=== PATIENT | female | born 1985 | race African-American/Black ===

== ENCOUNTER 2017-03-04 15:59 | Emergency (ER) | payer SELFPAY ==
[~2017-03-04] VITALS: Ht 154.9 cm; Wt 104.3 kg
[~2017-03-04 15:59] MED LIST: METH-37 PO; TRAM-48 PO
--- NOTE | 2017-03-04 16:26 | PHYS DOC ---
Past Medical History Past Medical History: Asthma Additional Past Medical Histor: right wrist carrpel tunnel, neuropathy,CHRONIC L HIP & LEG PAIN Past Surgical History: No Surgical History Alcohol Use: None Drug Use: None Adult General Chief Complaint Chief Complaint: SHOULDER INJURY [facility] HPI Patient is a 31 year old -[place] female who presents with multiple complaints. She states that Saturday she started having spasms in her neck and left shoulder and left sided sciatica pain is flared up. She states she's had a history of sciatica but has not cause any issues for while. She states today her pain in her left arm got worse and it feels like it's numb but she can still feel it and move it. She states in the left trapezius muscle and feels like is a spasm. She denies any fevers chills shortness of breath, chest pain nausea vomiting. Review of Systems Review of Systems Constitutional: Denies fever or chills [] Eyes: Denies change in visual acuity, redness, or eye pain [] HENT: Denies nasal congestion or sore throat [] Respiratory: Denies cough or shortness of breath [] Cardiovascular: No additional information not addressed in HPI [] GI: Denies abdominal pain, nausea, vomiting, bloody stools or diarrhea [] : Denies dysuria or hematuria [] Musculoskeletal: Denies back pain or joint pain [] Integument: Denies rash or skin lesions [] Neurologic: Denies headache, focal weakness or sensory changes [] Endocrine: Denies polyuria or polydipsia [] Allergies Allergies Allergies Coded Allergies Type Severity Reaction Last Updated Verified Latex, Natural Rubber Allergy Mild irritates my skin 06/03/14 Yes Physical Exam Physical Exam Constitutional: Well developed, well nourished, no acute distress, non-toxic appearance. [] HENT: Normocephalic, atraumatic, bilateral external ears normal, oropharynx moist, no oral exudates, nose normal. [] Eyes: PERRLA, EOMI, conjunctiva normal, no discharge. [] Neck: Normal range of motion, no tenderness, supple, no stridor. [] Cardiovascular:Heart rate regular rhythm, no murmur [] Lungs & Thorax: Bilateral breath sounds clear to auscultation [] Abdomen: Bowel sounds normal, soft, no tenderness, no masses, no pulsatile masses. [] Skin: Warm, dry, no erythema, no rash. [] Back: Tender to palpation of the left trapezius with obvious spasms, no CVA tenderness. [] Extremities: No tenderness, no cyanosis, no clubbing, ROM intact, no edema. Able to flex extend the fingers, wrist, elbow, shoulders of her left arm with median, radial and ulnar nerve dyscrasias intact motor and sensation. Strength 5 out of 5 Neurologic: Alert and oriented X 3, normal motor function, normal sensory function, no focal deficits noted. [] Psychologic: Affect normal, judgement normal, mood normal. [] Current Patient Data Vital Signs Vital Signs Date Time Temp Pulse Resp B/P (MAP) Pulse Ox O2 Delivery O2 Flow Rate FiO2 03/04/17 16:46 98.5 95 16 152/103 (119) 99 Room Air 98.5 Lab Values Laboratory Tests Test 03/04/17 17:20 Urine Test Negative (NEG) EKG EKG [] Radiology/Procedures Radiology/Procedures [facility] [address] [place] [address] IMAGING REPORT Signed PATIENT: JOO GEORGE ACCOUNT: [id number] : 1985 LOCATION: ER AGE: 31 SEX: F EXAM STATUS: REG ER ORD. PHYSICIAN: CEDRIC ST MD REASON: neck pain with left arm numness PROCEDURE: CT HEAD AND CERVICAL SPINE WO HEAD CT WITHOUT CONTRAST History: Neck pain with left arm numbness. Comparison: None. Technique: Axial images are obtained of the head from the skull base through the vertex without IV contrast. Exposure: One or more of the following individualized dose reduction techniques were utilized for this examination: 1. Automated exposure control 2. Adjustment of the mA and/or kV according to patient size 3. Use of iterative reconstruction technique Findings: The ventricles are appropriate in size, shape, and location for the patient's age. No obvious intracranial mass, mass-effect, midline shift, hemorrhage or obvious acute infarction is identified. Basilar cisterns are patent. Bone windows demonstrate no acute calvarial abnormality. The visualized paranasal sinuses appear clear. Impression: 1. No acute intracranial process. CT cervical spine Technique: Noncontrast CT of the cervical spine was performed using helical technique. Axial, sagittal, coronal reconstructions were obtained. Exposure: One or more of the following individualized dose reduction techniques were utilized for this examination: 1. Automated exposure control 2. Adjustment of the mA and/or kV according to patient size 3. Use of iterative reconstruction technique Findings: There is no evidence of acute fracture or acute malalignment involving the cervical spine. No prevertebral soft tissue swelling is identified. No significant degeneration is seen. Impression: No evidence of acute traumatic injury involving the cervical spine. Electronically signed by: Abraham Nguyen MD (03/04/2017 6:19 PM) DICTATED and SIGNED BY: ABRAHAM NGUYEN MD DATE: 03/04/171813 CC: CEDRIC ST MD; ANJEL SHORT MD ~ Impressions: Muscle spasm some neck Course & Med Decision Making Course & Med Decision Making Pertinent Labs and Imaging studies reviewed. (See chart for details) CT head and neck does not show any acute abdomen allergies. Return physical exam is normal. I do not suspect any serious pathology going on since this is just left upper extremity this being affected with this decreased sensation. We will discharge with Flexeril to see if this will help muscle spasms and decreased her symptoms. Return precautions given for worsening symptoms, fevers , numbness, weakness or other concerns. Dragon Disclaimer Dragon Disclaimer This electronic medical record was generated, in whole or in part, using a voice recognition dictation system. Departure Departure Impression: Primary Impression: Muscle spasm Disposition: 01 HOME, SELF-CARE Condition: STABLE Referrals: ANJEL SHORT MD (PCP) Patient Instructions: Muscle Cramps Additional Instructions: The CAT scan of her head and neck did not show any acute abnormalities. This is likely secondary to muscle spasm. Your being discharged with Flexeril which is a muscle relaxant. Please take them as instructed. They can make you sleepy so please don't drive while taking. If your pain gets worse, you have numbness, you have weakness of your arm or other concerns please return back to emergency department for follow-up. You will need to see her primary care physician within the next 3-5 days. Scripts Cyclobenzaprine Hcl (CYCLOBENZAPRINE HCL) 10 Mg Tablet 1 TAB PO TID Y for MUSCLE SPASMS, #30 TAB Prov: CEDRIC ST MD 03/04/[address] MD Mar 04, 2017 16:26
[2017-03-04 17:55] LABS: NEG OBC UR NEG; POS OBC UR POS
--- NOTE | 2017-03-04 18:22 | RAD ---
HEAD CT WITHOUT CONTRAST History: Neck pain with left arm numbness. Comparison: None. Technique: Axial images are obtained of the head from the skull base through the vertex without IV contrast. Exposure: One or more of the following individualized dose reduction techniques were utilized for this examination: 1. Automated exposure control 2. Adjustment of the mA and/or kV according to patient size 3. Use of iterative reconstruction technique Findings: The ventricles are appropriate in size, shape, and location for the patient's age. No obvious intracranial mass, mass-effect, midline shift, hemorrhage or obvious acute infarction is identified. Basilar cisterns are patent. Bone windows demonstrate no acute calvarial abnormality. The visualized paranasal sinuses appear clear. Impression: 1. No acute intracranial process. CT cervical spine Technique: Noncontrast CT of the cervical spine was performed using helical technique. Axial, sagittal, coronal reconstructions were obtained. Exposure: One or more of the following individualized dose reduction techniques were utilized for this examination: 1. Automated exposure control 2. Adjustment of the mA and/or kV according to patient size 3. Use of iterative reconstruction technique Findings: There is no evidence of acute fracture or acute malalignment involving the cervical spine. No prevertebral soft tissue swelling is identified. No significant degeneration is seen. Impression: No evidence of acute traumatic injury involving the cervical spine. Electronically signed by: Abraham Ramirez MD (03/04/2017 6:19 PM)
[2017-03-04] MEDS ORDERED: CYCL10TA2 PO (19:08)
[2017-03-04 19:28] VITALS: BP 134/90
== END 2017-03-04 19:30 | disposition home or self-care (01) ==
LOC: ER 15:59
DX: M62.838 Other muscle spasm (principal); M25.512 Pain in left shoulder; M54.32 Sciatica, left side; J45.909 Unspecified asthma, uncomplicated; G56.00 Carpal tunnel syndrome, unspecified upper limb; G89.29 Other chronic pain; Z91.040 Latex allergy status
CPT/HCPCS: 70450; 72125; 81025; 99285-25

== ENCOUNTER 2017-05-16 20:40 | Emergency (ER) | payer SELFPAY ==
[~2017-05-16] VITALS: Ht 154.9 cm; Wt 113.4 kg
[~2017-05-16 20:40] MED LIST changes: +CYCL10TA2 PO
[2017-05-16 21:00] VITALS: BP 127/76
[2017-05-16] MEDS ORDERED: OXYC-323 PO (21:02)
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
== END 2017-05-16 21:20 | disposition home or self-care (01) ==
LOC: ER 20:40
DX: T21.22XA Burn of second degree of abdominal wall, initial encounter (principal); J45.909 Unspecified asthma, uncomplicated; G56.01 Carpal tunnel syndrome, right upper limb; G89.29 Other chronic pain; Z91.040 Latex allergy status; Z88.8 Allergy status to other drugs, medicaments and biological substances; Y27.2XXA Contact with hot fluids, undetermined intent, initial encounter; Y93.89 Activity, other specified; Y99.8 Other external cause status; Y92.090 Kitchen in other non-institutional residence as the place of occurrence of the external cause
CPT/HCPCS: 99283

== ENCOUNTER 2017-07-16 08:42 | Emergency (ER) | payer SELFPAY ==
[~2017-07-16] VITALS: Ht 154.9 cm; Wt 117.9 kg
[~2017-07-16 08:42] MED LIST changes: +OXYC-323 PO
[2017-07-16 08:55] VITALS: BP 146/74
--- NOTE | 2017-07-16 09:30 | PHYS DOC ---
Past Medical History Past Medical History: Asthma Additional Past Medical Histor: right wrist carrpel tunnel, neuropathy,CHRONIC L HIP & LEG PAIN Past Surgical History: No Surgical History Alcohol Use: None Drug Use: None Adult General Chief Complaint Chief Complaint: HAND PROBLEM [facility] HPI Patient is a 32 year old female presents to the emergency department with a history of right hand pain. Patient states she was trying to pull a box off the shelf using her right third finger when she developed pain. She states this happened about 2 weeks ago. She states she had taken ibuprofen 800 mg at night because ibuprofen causes her to be sleepy. Patient states she continues to have pain. She is right hand dominant. Review of Systems Review of Systems Constitutional: Denies fever or chills [] Eyes: Denies change in visual acuity, redness, or eye pain [] HENT: Denies nasal congestion or sore throat [] Respiratory: Denies cough or shortness of breath [] Cardiovascular: No additional information not addressed in HPI [] GI: Denies abdominal pain, nausea, vomiting, bloody stools or diarrhea [] : Denies dysuria or hematuria [] Musculoskeletal: Denies back pain. Right hand pain Integument: Denies rash or skin lesions [] Neurologic: Denies headache, focal weakness or sensory changes [] Endocrine: Denies polyuria or polydipsia [] Allergies Allergies Allergies Coded Allergies Type Severity Reaction Last Updated Verified Latex, Natural Rubber Allergy Mild irritates my skin 06/03/14 Yes Physical Exam Physical Exam Constitutional: Well developed, well nourished, no acute distress, non-toxic appearance. [] HENT: Normocephalic, atraumatic, bilateral external ears normal, oropharynx moist, no oral exudates, nose normal. [] Eyes: PERRLA, EOMI, conjunctiva normal, no discharge. [] Neck: Normal range of motion, no tenderness, supple, no stridor. [] Cardiovascular:Heart rate regular rhythm, no murmur [] Lungs & Thorax: Bilateral breath sounds clear to auscultation [] Skin: Warm, dry, no erythema, no rash. [] Extremities: right 3rd metacarpal tenderness, no cyanosis, no clubbing, ROM intact, no edema. Patient with good sensation noted, full ROM of the hand and fingers noted. No discoloration noted, no swelling noted. Good strength noted. Neurologic: Alert and oriented X 3, normal motor function, normal sensory function, no focal deficits noted. [] Psychologic: Affect normal, judgement normal, mood normal. [] Current Patient Data Vital Signs Vital Signs Date Time Temp Pulse Resp B/P (MAP) Pulse Ox O2 Delivery O2 Flow Rate FiO2 07/16/17 08:55 98.4 78 22 99 Room Air 98.4 EKG EKG [] Radiology/Procedures Radiology/Procedures [][facility] [address] [place] [address] IMAGING REPORT Signed PATIENT: JOO GEORGE ACCOUNT: [id number] : 1985 LOCATION: ER AGE: 32 SEX: F EXAM STATUS: REG ER ORD. PHYSICIAN: ROXANNE KHOURY APRN REASON: right hand pain PROCEDURE: HAND RIGHT 3V Right hand, 3 views, 07/16/2017: History: Hand pain, injury No fracture or dislocation is identified. The soft tissues are unremarkable. IMPRESSION: No acute right hand abnormality is detected. DICTATED and SIGNED BY: LIZ CARR MD DATE: 07/16/17 0953 CC: ANJEL SHORT MD; ROXANNE KHOURY APRN; NON,STAFF ~ Course & Med Decision Making Course & Med Decision Making Pertinent Labs and Imaging studies reviewed. (See chart for details) X-rays negative for bony abnormalities. Patient will be encouraged to take Ibuprofen 600-800 mg every 8 hours. Ice packs on 20 minutes and off 20 minutes several times a day. Recommended ramirez wrap for comfort. Patient will be discharged home in stable condition. Signs and symptoms to return to the emergency department has been provided. Patient was provided orthopedic to followup with in 1 week. All questions and concerns have been answered at the patients beside. [] Dragon Disclaimer Dragon Disclaimer This electronic medical record was generated, in whole or in part, using a voice recognition dictation system. Departure Departure Impression: Primary Impression: Sprain of right hand Disposition: HOME, SELF-CARE Condition: STABLE Referrals: ANJEL SHORT MD (PCP) JOO BELL MD Patient Instructions: Hand Injuries, [id number] Additional Instructions: Activity as tolerated Ibuprofen 600-800 mg every 8 hours with food, stop taking if you develop upset stomach Ice packs on 20 minutes and of 20 minutes several times a day Wear the ramirez wrap for the next 5-7 days Followup with orthopedic in 5-7 days Return to emergency department as needed for signs and symptoms that become worse. Problem Qualifiers Primary Impression: Sprain of right hand Encounter type: initial encounter Qualified Codes: S63.91XA - Sprain of unspecified part of right wrist and hand, initial encounter ROXANNE KHOURY APRN Jul 16, 2017 09:30
--- NOTE | 2017-07-16 09:58 | RAD ---
Right hand, 3 views, 07/16/2017: History: Hand pain, injury No fracture or dislocation is identified. The soft tissues are unremarkable. IMPRESSION: No acute right hand abnormality is detected.
== END 2017-07-16 10:16 | disposition home or self-care (01) ==
LOC: ER 08:42
DX: S63.91XA Sprain of unspecified part of right wrist and hand, initial encounter (principal); J45.909 Unspecified asthma, uncomplicated; G89.29 Other chronic pain; Z91.040 Latex allergy status; X50.9XXA Other and unspecified overexertion or strenuous movements or postures, initial encounter; Y93.89 Activity, other specified; Y99.8 Other external cause status; Y92.89 Other specified places as the place of occurrence of the external cause
CPT/HCPCS: 73130; 99284

== ENCOUNTER 2017-08-25 18:14 | Emergency (ER) | payer SELFPAY ==
[~2017-08-25] VITALS: Ht 154.9 cm; Wt 104.3 kg
[2017-08-25 18:45] LABS: BASO % 0 % (0-3); EOS % 2 % (0-3); HEMATOCRIT 39.2 % (36.0-47.0); HEMOGLOBIN 12.6 g/dL (12.0-15.5); LYMPH # 2.5 x10^3/uL (1.0-4.8); LYMPH % 45 % (24-48); MEAN CORPUSCULAR HEMOGLOBIN 27 pg (25-35); MEAN CORPUSCULAR HGB CONC 32 g/dL (31-37); MEAN CORPUSCULAR VOLUME 83 fL (79-100); MONO % 8 % (0-9); NEUT % 45 % (31-73); PLATELET COUNT 238 x10^3/uL (140-400); RED BLOOD COUNT 4.72 x10^6/uL (3.50-5.40); RED CELL DISTRIBUTION WIDTH 14.7 % (11.5-14.5); WHITE BLOOD COUNT 5.6 x10^3/uL (4.0-11.0)
[2017-08-25 19:03] LABS: CALCIUM 8.9 mg/dL (8.5-10.1); CREATININE 0.9 mg/dL (0.6-1.0); GFR 88.4; POTASSIUM 3.6 mmol/L (3.5-5.1)
[2017-08-25 19:08] LABS: ALBUMIN 3.7 g/dL (3.4-5.0); TOTAL BILIRUBIN 0.2 mg/dL (0.2-1.0); TOTAL PROTEIN 7.3 g/dL (6.4-8.2)
[2017-08-25 19:11] LABS: BILIRUBIN,URINE NEGATIVE (NEG); GLUCOSE,URINE NEGATIVE (NEG); NITRITE,URINE NEGATIVE (NEG); PH,URINE 6.5; PROTEIN,URINE NEGATIVE (NEG-TRACE); UROBILINOGEN,URINE 0.2 mg/dL (0.2 mg/dL)
[2017-08-25 19:25] LABS: BACTERIA,URINE FEW /HPF (0-FEW); RBC,URINE OCC /HPF (0-2); SQUAMOUS EPITHELIAL CELL,UR FEW /LPF
[2017-08-25] MEDS ORDERED: DICY10CA53 PO (20:28)
--- NOTE | 2017-08-25 20:29 | PHYS DOC ---
Past Medical History Past Medical History: Asthma, Other Additional Past Medical Histor: right wrist carrpel tunnel, neuropathy,CHRONIC L HIP & LEG PAIN Past Surgical History: No Surgical History Alcohol Use: None Drug Use: None Adult General Chief Complaint Chief Complaint: ABDOMINAL PAIN HPI HPI Patient is a 32 year old female who presents ambulatory to the ED complaining of abdominal pain. She's had this abdominal pain for over a week. At first it was around her bellybutton, then it went down the sides of her abdomen and was across her abdomen. It hurts worse when she eats or drinks. She's had nausea. One morning she vomited a little phlegm that she has not had much vomiting. She had diarrhea once on , otherwise it has been soft stools. Patient tried naproxen without relief. She took ranitidine for a couple of days which also did not help. Patient has not had recurrent problem with abdominal pain. She states she last ate 15 or 20 minutes prior to arrival. She ate some kind of cheese tater tots from [employer]. It made her nauseated and she wasn't able to eat much. Patient does not take any chronic medications. She has no chronic medical problems. She's had no surgeries. 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 PCP is at [facility], she does have a routine appointment coming up on 09/09. Review of Systems Review of Systems Constitutional: Denies fever or chills [] Respiratory: Denies cough or shortness of breath [] Cardiovascular: Denies chest pain GI: As in history of present illness : Denies dysuria or hematuria [] Allergies Allergies Allergies Coded Allergies Type Severity Reaction Last Updated Verified Latex, Natural Rubber Allergy Mild irritates my skin 06/03/14 Yes Physical Exam Physical Exam Constitutional: Obese female, ambulatory without distress, in no acute distress whatsoever, warm and dry. HENT: Normocephalic, atraumatic, bilateral external ears normal, nose normal. [ ] Eyes: conjunctiva normal, no discharge. [] Neck: Normal range of motion, no stridor. [] Cardiovascular:Heart rate regular rhythm, no murmur [] Lungs & Thorax: Bilateral breath sounds clear to auscultation [] Abdomen: Bowel sounds normal, soft, no tenderness, no masses, no pulsatile masses. Abdomen exam entirely benign with no tenderness whatsoever to palpation. Skin: Warm, dry, no erythema, no rash. [] Extremities: No tenderness, no cyanosis, no clubbing, ROM intact, no edema. [] Neurologic: Alert and oriented X 3, normal motor function, no focal deficits noted. [] Current Patient Data Vital Signs Vital Signs Date Time Temp Pulse Resp B/P (MAP) Pulse Ox O2 Delivery O2 Flow Rate FiO2 08/25/17 20:30 80 135/82 (99) 97 Room Air 08/25/17 18:15 98.4 16 98.4 Lab Values Laboratory Tests Test 08/25/17 18:37 08/25/17 19:02 08/25/17 19:04 White Blood Count 5.6 x10^3/uL (4.0-11.0) Red Blood Count 4.72 x10^6/uL (3.50-5.40) Hemoglobin 12.6 g/dL (12.0-15.5) Hematocrit 39.2 % (36.0-47.0) Mean Corpuscular Volume 83 fL (79-100) Mean Corpuscular Hemoglobin 27 pg (25-35) Mean Corpuscular Hemoglobin Concent 32 g/dL (31-37) Red Cell Distribution Width 14.7 % (11.5-14.5) H Platelet Count 238 x10^3/uL (140-400) Neutrophils (%) (Auto) 45 % (31-73) Lymphocytes (%) (Auto) 45 % (24-48) Monocytes (%) (Auto) 8 % (0-9) Eosinophils (%) (Auto) 2 % (0-3) Basophils (%) (Auto) 0 % (0-3) Neutrophils # (Auto) 2.5 x10^3uL (1.8-7.7) Lymphocytes # (Auto) 2.5 x10^3/uL (1.0-4.8) Monocytes # (Auto) 0.5 x10^3/uL (0.0-1.1) Eosinophils # (Auto) 0.1 x10^3/uL (0.0-0.7) Basophils # (Auto) 0.0 x10^3/uL (0.0-0.2) Sodium Level 140 mmol/L (136-145) Potassium Level 3.6 mmol/L (3.5-5.1) Chloride Level 104 mmol/L (98-107) Carbon Dioxide Level 27 mmol/L (21-32) Anion Gap 9 (6-14) Blood Urea Nitrogen 9 mg/dL (7-20) Creatinine 0.9 mg/dL (0.6-1.0) Estimated GFR (Cockcroft-Gault) 88.4 BUN/Creatinine Ratio 10 (6-20) Glucose Level 87 mg/dL (70-99) Calcium Level 8.9 mg/dL (8.5-10.1) Total Bilirubin 0.2 mg/dL (0.2-1.0) Aspartate Amino Transferase (AST) 16 U/L (15-37) Alanine Aminotransferase (ALT) 24 U/L (14-59) Alkaline Phosphatase 77 U/L (46-116) Total Protein 7.3 g/dL (6.4-8.2) Albumin 3.7 g/dL (3.4-5.0) Albumin/Globulin Ratio 1.0 (1.0-1.7) Lipase 84 U/L (73-393) Urine Collection Type Unknown Urine Color Yellow Urine Clarity Clear Urine pH 6.5 Urine Specific Tyler 1.010 Urine Protein Negative mg/dL (NEG-TRACE) Urine Glucose (UA) Negative mg/dL (NEG) Urine Ketones (Stick) Negative mg/dL (NEG) Urine Blood Small (NEG) Urine Nitrite Negative (NEG) Urine Bilirubin Negative (NEG) Urine Urobilinogen Dipstick 0.2 mg/dL (0.2 mg/dL) Urine Leukocyte Esterase Small (NEG) Urine RBC Occ /HPF (0-2) Urine WBC 1-4 /HPF (0-4) Urine Squamous Epithelial Cells Few /LPF Urine Bacteria Few /HPF (0-FEW) Urine Mucus Slight /LPF POC Urine HCG, Qualitative Hcg negative (Negative) Laboratory Tests 08/25/17 18:37 Laboratory Tests 08/25/17 18:37 EKG EKG [] Radiology/Procedures Radiology/Procedures Abdomen flat and upright x-rays read by me. There is a moderate amount of stool in the colon. Nonspecific bowel gas pattern. No free air. No air-fluid levels. Nonobstructive bowel gas pattern.[] Course & Med Decision Making Course & Med Decision Making Pertinent Labs and Imaging studies reviewed. (See chart for details) 32-year-old female presents with abdominal pain for over a week, the pain has moved around to all areas of her abdomen. She's had nausea but no vomiting. On the way to the emergency department she stopped at [employer] and ate some cheese tater tots sort of things. Evaluation tonight is reassuring in terms of normal labs, urine test negative, normal x-rays. See instructions for plan. I advised the patient that we will try some ental, try a laxative, and a bland diet for a couple of days. She is agreeable to that plan. [] Dragon Disclaimer Dragon Disclaimer This electronic medical record was generated, in whole or in part, using a voice recognition dictation system. Departure Departure Impression: Primary Impression: Abdominal pain Disposition: HOME, SELF-CARE Condition: STABLE Referrals: ANJEL SHORT MD (PCP) Patient Instructions: Abdominal Pain, Child Additional Instructions: Today, we did not find a serious cause of your abdominal pain. Lab tests, urine test, and x-rays did not show any cause. I recommend trying 3 different treatments to see if it helps. 1. Tonight, take a dose of laxative at bedtime. I recommend "natural vegetable laxative", generic for Senokot. Take 2 of those at bedtime tonight, and if you have not had good "results" by tomorrow afternoon, repeat that dose. 2. For 2-3 days, only clear liquids and small amounts of bland foods. Nothing spicy or greasy. No fast food. No soda pop except for Sprite or diet Sprite. [place] foods include oatmeal, pasta without sauce, Jell-O, crackers and toast, bananas. 3. We will try a prescription for intestinal cramping to see if that helps. Bentyl as prescribed. If you are not getting better in 5-7 days, see your doctor for recheck. If you get worse, return for recheck to emergency. Scripts Dicyclomine Hcl (BENTYL) 10 Mg Capsule 1 CAP PO TID Y for abdominal pain, #30 CAP 1 Refill Prov: NIMESH GUARDADO MD 08/25/17 NIMESH GUARDADO MD Aug 25, 2017 20:28
[2017-08-25 20:30] VITALS: BP 135/82
--- NOTE | 2017-08-26 08:21 | RAD ---
Abdomen, 2 views, 08/25/2017: History: Abdominal pain Gas is present in large and small bowel in a nonspecific pattern. There is a moderate amount stool in the right colon. No free air is seen in the abdomen. There is no evidence of organomegaly or abnormal abdominal calcification. IMPRESSION: No acute abdominal abnormality is detected.
== END 2017-08-25 20:39 | disposition home or self-care (01) ==
LOC: ER 18:14
DX: R10.84 Generalized abdominal pain (principal); R11.2 Nausea with vomiting, unspecified; K59.00 Constipation, unspecified; J45.909 Unspecified asthma, uncomplicated; G89.29 Other chronic pain; Z91.040 Latex allergy status
CPT/HCPCS: 36415; 74020; 80053; 81001; 81025; 83690; 85025; 87086; 99285

== ENCOUNTER 2017-10-01 17:57 | Emergency (ER) | payer OTHER ==
[2017-10-01] MEDS: methylPREDNISolone SOD SUCC PF 125 MG/2 ML VIAL. IM (19:53)
[2017-10-01] MEDS: IBUPROFEN 800 MG TABLET. PO (19:54)
== END 2017-10-01 20:03 | disposition home or self-care (01) ==
LOC: ER 17:57
DX: J45.909 Unspecified asthma, uncomplicated (principal); M54.42 Lumbago with sciatica, left side; G89.29 Other chronic pain; E66.9 Obesity, unspecified; Z68.42 Body mass index [BMI] 45.0-49.9, adult; Z91.040 Latex allergy status
CPT/HCPCS: 96372; 99283-25; J2930

== ENCOUNTER 2018-01-20 17:59 | Emergency (ER) | payer OTHER ==
[2018-01-20 19:00] LABS: BILIRUBIN,URINE NEGATIVE (NEG); CLARITY,URINE CLEAR; COLOR,URINE YELLOW; GLUCOSE,URINE NEGATIVE (NEG); NITRITE,URINE NEGATIVE (NEG); PROTEIN,URINE NEGATIVE (NEG-TRACE); UROBILINOGEN,URINE 0.2 mg/dL (0.2 mg/dL)
[2018-01-20 19:01] LABS: URINE HCG POC HCG NEGATIVE (Negative)
[2018-01-20 19:08] LABS: BACTERIA,URINE MODERATE /HPF (0-FEW); RBC,URINE 0 /HPF (0-2); SQUAMOUS EPITHELIAL CELL,UR FEW /LPF
== END 2018-01-20 20:33 | disposition home or self-care (01) ==
LOC: ER 17:59
DX: R07.89 Other chest pain (principal); G89.29 Other chronic pain; J45.909 Unspecified asthma, uncomplicated; Z91.040 Latex allergy status
CPT/HCPCS: 81001; 81025; 87086; 93005; 99285-25

== ENCOUNTER 2018-04-22 21:52 | Emergency (ER) | payer OTHER | END 2018-04-22 23:29 | disposition home or self-care (01) | LOC: ER 23:29 | DX: G89.29 Other chronic pain (principal); M25.571 Pain in right ankle and joints of right foot; J45.909 Unspecified asthma, uncomplicated; Z91.040 Latex allergy status; W11.XXXA Fall on and from ladder, initial encounter; Y93.89 Activity, other specified; Y99.8 Other external cause status; Y92.89 Other specified places as the place of occurrence of the external cause | CPT/HCPCS: 99281 ==

== ENCOUNTER 2021-01-15 19:52 | Emergency (ER) | payer BC, OTHER ==
[~2021-01-15] VITALS: Ht 154.9 cm; Wt 123.1 kg
[~2021-01-15 19:52] MED LIST changes: +DICY10CA53 PO; -OXYC-323 PO; +OXYC1TAB15 PO; +PRED50TA PO
[2021-01-15 20:10] VITALS: BP 155/94
[2021-01-15 20:51] LABS: BASO % 0 % (0-3); EOS # 0.1 x10^3/uL (0.0-0.7); EOS % 2 % (0-3); HEMATOCRIT 39.8 % (36.0-47.0); HEMOGLOBIN 12.8 g/dL (12.0-15.5); LYMPH # 2.6 x10^3/uL (1.0-4.8); LYMPH % 31 % (24-48); MEAN CORPUSCULAR HEMOGLOBIN 27 pg (25-35); MEAN CORPUSCULAR HGB CONC 32 g/dL (31-37); MEAN CORPUSCULAR VOLUME 82 fL (79-100); MONO # 0.7 x10^3/uL (0.0-1.1); MONO % 8 % (0-9); NEUT # 4.9 x10^3/uL (1.8-7.7); NEUT % 59 % (31-73); PLATELET COUNT 251 x10^3/uL (140-400); RED BLOOD COUNT 4.83 x10^6/uL (3.50-5.40); RED CELL DISTRIBUTION WIDTH 15.4 % (11.5-14.5); WHITE BLOOD COUNT 8.3 x10^3/uL (4.0-11.0)
[2021-01-15 20:57] LABS: PREG TEST PT QUAL NEGATIVE (NEG)
[2021-01-15 20:58] LABS: BARBITURATES NEG (NEG); BENZODIAZEPINES NEG (NEG); CALCIUM 9.1 mg/dL (8.5-10.1); CANNABINOIDS NEG (NEG); COCAINE NEG (NEG); CREATININE 0.9 mg/dL (0.6-1.0); GFR 86.7; METHADONE NEG (NEG); OPIATES NEG (NEG); PHENCYCLIDINE NEG (NEG); POTASSIUM 4.3 mmol/L (3.5-5.1)
[2021-01-15 21:03] LABS: AMPHETAMINE/METHAMPHETAMINE NEG (NEG)
[2021-01-15 21:07] LABS: ALBUMIN 3.7 g/dL (3.4-5.0); ALBUMIN/GLOBULIN RATIO 0.9 (1.0-1.7); TOTAL BILIRUBIN 0.2 mg/dL (0.2-1.0); TOTAL PROTEIN 7.6 g/dL (6.4-8.2)
--- NOTE | 2021-01-15 21:23 | RAD ---
EXAMINATION: XR CHEST 1V CLINICAL HISTORY: Dizziness, lightheadedness EXAM DATE/TIME: 01/15/2021 9:16 PM COMPARISON: None FINDINGS: Lines, Tubes, and Devices: None. Cardiomediastinal Silhouette: Within normal limits. Lungs and Pleura: No evidence of focal airspace consolidation or pleural effusion. Pulmonary vasculat ure unremarkable. Bones and Soft Tissues: No acute osseous abnormality. IMPRESSION: No evidence of acute cardiopulmonary abnormality. Electronically signed by: Royal Dang DO (01/15/2021 9:21 PM) [facility]
--- NOTE | 2021-01-15 23:20 | PHYS DOC ---
Past Medical History Past Medical History: Arthritis, Asthma, Sciatica, Other Additional Past Medical Histor: right wrist carrpel tunnel, neuropathy,CHRONIC L HIP & LEG PAIN Past Surgical History: No Surgical History Smoking Status: Never Smoker Alcohol Use: None Drug Use: None General Adult EDM: Chief Complaint: DIZZY/LIGHT HEADED HPI: HPI: 35-year-old -[place] female past medical history of Covid in July 2020, presents to the ED with c/o diffuse, nonlocalized head "tightness" with dizziness stating "I thought I was going to pass out," she was prescribed tanesha apentin by her primary care physician Dr. Alba for "pain all over, arthritis" and "it isn't working." Patient states headache has been gradual and worsening for the past week, has not taken her gabapentin for the past 2 days. Reports she is vaccinated against Covid. No known history of Covid. Denies any associated fever, chills, confusion, nuchal rigidity, blurry vision, nausea, vomiting, chest pain, dyspnea, abscess, unilateral leg swelling or sensorimotor deficits. Denies any head trauma unsteady gait, hearing difficulties or intracranial hemorrhage. Denies any alcohol or drug use. No history of syncope. No family history of connective tissue disorder including Marfan's or Libby-Danlos, sudden under the age of 50 or cardiac arrhythmias. Patient's laury is present in the ED and she consents to his knowledge of her medical information. Review of Systems: Review of Systems: Constitutional: Denies fever or chills. [] Eyes: Denies change in visual acuity. [] HENT: Denies nasal congestion or sore throat. [] Respiratory: Denies cough or shortness of breath. [] Cardiovascular: Denies chest pain or edema. [] GI: Denies abdominal pain, nausea, vomiting, bloody stools or diarrhea. [] : Denies dysuria or vaginal bleeding Musculoskeletal: Denies back pain or joint pain. [] Integument: Denies rash or diaphoresis Neurologic: Denies neck pain, focal weakness or sensory changes. [] Endocrine: Denies polyuria or polydipsia. [] Lymphatic: Denies swollen glands. [] Psychiatric: Denies depression or anxiety. [] Heart Score: C/O Chest Pain: No Risk Factors: Risk Factors: DM, Current or recent (<one month) smoker, HTN, HLP, family history of CAD, obesity. Risk Scores: Score 0 - 3: 2.5% MACE over next 6 weeks - Discharge Home Score 4 - 6: 20.3% MACE over next 6 weeks - Admit for Clinical Observation Score 7 - 10: 72.7% MACE over next 6 weeks - Early Invasive Strategies Allergies: Allergies: Allergies Coded Allergies Type Severity Reaction Last Updated Verified Latex, Natural Rubber Allergy Mild irritates my skin 06/03/14 Yes Physical Exam: PE: Constitutional: Well developed, well nourished, no acute distress, non-toxic appearance. HENT: Normocephalic, atraumatic, Eyes: EOMI, conjunctiva normal, no discharge. Neck: Normal range of motion, supple, Cardiovascular: S1/2 present, regular rhythm Lungs & Thorax: Speaking in full sentences, bilateral equal chest rise, no tachypnea or increased work of breathing Abdomen: soft, no tenderness, Skin: Warm, dry, no erythema, no rash. [] Back: No tenderness, no CVA tenderness. [] Extremities: No tenderness, no cyanosis, no lower extremity edema Neurologic: Alert and oriented X 3, normal motor function, normal sensory function, no focal deficits noted. [] Psychologic: Affect normal, judgement normal, mood normal. [] Current Patient Data: Labs: Laboratory Tests Test 01/15/21 20:30 01/15/21 20:43 White Blood Count 8.3 x10^3/uL (4.0-11.0) Red Blood Count 4.83 x10^6/uL (3.50-5.40) Hemoglobin 12.8 g/dL (12.0-15.5) Hematocrit 39.8 % (36.0-47.0) Mean Corpuscular Volume 82 fL (79-100) Mean Corpuscular Hemoglobin 27 pg (25-35) Mean Corpuscular Hemoglobin Concent 32 g/dL (31-37) Red Cell Distribution Width 15.4 % (11.5-14.5) H Platelet Count 251 x10^3/uL (140-400) Neutrophils (%) (Auto) 59 % (31-73) Lymphocytes (%) (Auto) 31 % (24-48) Monocytes (%) (Auto) 8 % (0-9) Eosinophils (%) (Auto) 2 % (0-3) Basophils (%) (Auto) 0 % (0-3) Neutrophils # (Auto) 4.9 x10^3/uL (1.8-7.7) Lymphocytes # (Auto) 2.6 x10^3/uL (1.0-4.8) Monocytes # (Auto) 0.7 x10^3/uL (0.0-1.1) Eosinophils # (Auto) 0.1 x10^3/uL (0.0-0.7) Basophils # (Auto) 0.0 x10^3/uL (0.0-0.2) D-Dimer (Ramila) 0.31 ug/mlFEU (0.00-0.50) Sodium Level 141 mmol/L (136-145) Potassium Level 4.3 mmol/L (3.5-5.1) Chloride Level 105 mmol/L (98-107) Carbon Dioxide Level 28 mmol/L (21-32) Anion Gap 8 (6-14) Blood Urea Nitrogen 16 mg/dL (7-20) Creatinine 0.9 mg/dL (0.6-1.0) Estimated GFR (Cockcroft-Gault) 86.7 BUN/Creatinine Ratio 18 (6-20) Glucose Level 99 mg/dL (70-99) Calcium Level 9.1 mg/dL (8.5-10.1) Magnesium Level 2.0 mg/dL (1.8-2.4) Total Bilirubin 0.2 mg/dL (0.2-1.0) Aspartate Amino Transferase (AST) 11 U/L (15-37) L Alanine Aminotransferase (ALT) 16 U/L (14-59) Alkaline Phosphatase 87 U/L (46-116) Troponin I Quantitative < 0.017 ng/mL (0.000-0.055) Total Protein 7.6 g/dL (6.4-8.2) Albumin 3.7 g/dL (3.4-5.0) Albumin/Globulin Ratio 0.9 (1.0-1.7) L Serum Test, Qualitative Negative (NEG) Urine Opiates Screen Neg (NEG) Urine Methadone Screen Neg (NEG) Urine Barbiturates Neg (NEG) Urine Phencyclidine Screen Neg (NEG) Urine Amphetamine/Methamphetamine Neg (NEG) Urine Benzodiazepines Screen Neg (NEG) Urine Cocaine Screen Neg (NEG) Urine Cannabinoids Screen Neg (NEG) Urine Ethyl Alcohol Neg (NEG) POC Urine HCG, Qualitative Hcg negative (Negative) Laboratory Tests 01/15/21 20:30 Laboratory Tests 01/15/21 20:30 Vital Signs: Vital Signs Date Time Temp Pulse Resp B/P (MAP) Pulse Ox O2 Delivery O2 Flow Rate FiO2 01/15/21 20:10 98.4 84 18 155/94 (114) 100 Room Air 98.4 EKG: EKG: Sinus rhythm at 81 bpm, no axis deviation, normal intervals, S1Q3T3 present, no ST elevations or ST depressions, no active chest pain Radiology/Procedures: Radiology/Procedures: []IMAGING REPORT Signed PATIENT: JOO GEORGE MACCOUNT: [id number] : 1985 LOCATION: ER AGE: 35 SEX: F EXAM STATUS: PRE ER ORD. PHYSICIAN: JORGE ALBERTO REICH DO REASON: dizzy, light herad PROCEDURE: PORTABLE CHEST 1V EXAMINATION: XR CHEST 1V CLINICAL HISTORY: Dizziness, lightheadedness EXAM DATE/TIME: 01/15/2021 9:16 PM COMPARISON: None FINDINGS: Lines, Tubes, and Devices: None. Cardiomediastinal Silhouette: Within normal limits. Lungs and Pleura: No evidence of focal airspace consolidation or pleural effusion. Pulmonary vasculature unremarkable. Bones and Soft Tissues: No acute osseous abnormality. IMPRESSION: No evidence of acute cardiopulmonary abnormality. Electronically signed by: Royal Lo DO (01/15/2021 9:21 PM) [facility] DICTATED and SIGNED BY: ROYAL LO DO DATE: 01/15/[id number] 0 Impression: PERC rule for pulmonary embolus 0 criteria No need for further workup, as <2% chance of PE. If no criteria are positive and clinicians pre-test probability is <15%, PERC Rule criteria are satisfied. Course & Med Decision Making: Course & Med Decision Making Pertinent Labs and Imaging studies reviewed. (See chart for details) Lengthy ED stay due to high volume in ED, acuity of critical pts and ED staffing. Patient with complaints of headache and dizziness in a very well- appearing female, hemodynamically stable. Patient has been initially assessed and work-up started. Prior to my reevaluation to consider medical clearance, patient informed RN that she did not want to wait in the emergency department any longer due to high volumes. Patient would not wait for me to reassess her, nor would she wait for discharge information. RN unable to convince, even with fiance at bedside. The patient has decided to leave our facility against medical advice. I have assessed patient's ability to make informed decision and feel the patient has the capacity to comprehend information regarding the current medical condition and appreciates the impact of the disease or condition and the consequences of various options for treatment, including foregoing treatment. The patient possesses the ability to evaluate all treatment options, comparing the risks and benefits of each option, communicate his or her choice in a consistent manner over time, and is able to make rational choices. RN outlined the possible risks of foregoing any or all of these interventions and the patient understands and acknowledges that the decision to leave may result in undesirable consequences such as , permanent disability, and/or loss of current lifestyle. Even though leaving AMA is not ideal, RN instructed pt to resume care as soon as possible with another provider. This conversation was witnessed by another member of the emergency department staff and rn clearly communicated the patient is welcome to return anytime to continue care at our facility. Dragon Disclaimer: Dragon Disclaimer: This electronic medical record was generated, in whole or in part, using a voice recognition dictation system. Departure Departure Impression: Primary Impression: Headache Additional Impressions: Dizziness Left against medical advice Disposition: LEFT AGAINST MEDICAL ADVICE Condition: STABLE Referrals: JOSETTE ALBA MD (PCP) In 24 hours for reevaluation Patient Instructions: Discharge Against Medical Advice, Dizziness, General Headache Without Cause Additional Instructions: FOLLOW UP WITH NEUROLOGY: [facility] Address: [address] [place] [address] FOLLOW UP WITH ENT: Otolaryngology Address: [address], [address] [place] [address] medical scientific officer [facility] Address: [facility] [address] [place] [address] JORGE ALBERTO REICH DO Jan 15, 2021 23:20
--- NOTE | 2021-01-16 00:29 | EKG ---
[facility] [address] [place] [address] Test Date: 2021-01-15 Test Time: 20:15:50 Pat Name: JOO GEORGE Department: Room: Gender: F Demand Planning Manager: : 1985 Requested By: JORGE ALBERTO REICH Order Number: [id number] Reading MD: Measurements Intervals [place] Rate: 91 P: 46 NE: 136 QRS: 9 QRSD: 86 T: 15 QT: 338 QTc: 417 Interpretive Statements SINUS RHYTHM QRS(T) CONTOUR ABNORMALITY CONSIDER ANTEROSEPTAL MYOCARDIAL DAMAGE POSSIBLY ABNORMAL ECG RI6.01 No previous ECG available for comparison
== END 2021-01-15 23:20 | disposition left against medical advice (07) ==
LOC: ER 19:52
DX: R51.9 Headache, unspecified (principal); R42 Dizziness and giddiness; M19.90 Unspecified osteoarthritis, unspecified site; J45.909 Unspecified asthma, uncomplicated; G89.29 Other chronic pain; Z91.040 Latex allergy status
CPT/HCPCS: 36415; 71045; 80053; 80307; 81025; 83735; 84484; 84703; 85025; 85379; 93005; 99285